=== PATIENT | male | born 1960 | race Caucasian/White ===

== ENCOUNTER 2018-12-17 06:46 | Inpatient (IN) ==
--- NOTE | 2018-11-24 08:05 | History & Physical Report ---
Date of Service November 24, 2018 Date of Surgery: 12-17-18 Assessment & Plan (1) Osteoarthritis of left knee: Risks and benefits of procedure discussed in detail today, patient would like to proceed with a left total knee replacement at [facility] as scheduled. will obtain medical clearance prior to surgery as well as obtain PATs at [facility]. Will place on ASA 81mg po bid x 1 month post op, f/u 2 weeks post op for routine post-operative care and x-ray, sooner if having any problems. will make arrangements for HHPT at the time of discharge. At this point in time, has failed conservative measures and would like to proceed with surgical intervention. (2) Osteoarthritis: History of Present Illness Chief Complaint: left knee pain Primary Care Provider: Glen Chandler Mr Erickson is a 58 year old male who complains of left knee pain, presents for pre-op evaluation prior to a left total knee replacement on 12-17-18 with removal of ACL screws. He presents with pain, crepitus and decreased rom on the left side. He states that the symptoms have been chronic non-traumatic. The symptoms occur constantly with intermittent worsening. Currently the patient states that the symptoms are moderate-severe. The pain is described as aching, discomforting and throbbing. The symptoms occur intermittently. He rates his current pain as 4/10 and worst is 7/10. The symptoms are aggravated by ascending stairs, daily activities, descending stairs, first steps while awake, kneeling, movement, repetitive activities, sleeping on the affected side, squatting and walking. Bill states that the symptoms are relieved by no specific activity. In addition to left knee pain the patient is also experiencing decreased mobility, crepitus, pain after activity, limping and joint pain. Prior NSAIDs include Aleve and Ibuprofen. He has been treated with a corticosteroid injection on the left side. Patient had visco injection 11/2017. Patient has had previous therapy. He underwent ACL reconstruction approximately 19 years ago. Allergies Allergy/AdvReac Type Severity Reaction Status Date / Time Penicillins Allergy Rash Verified 11/21/18 08:24 Home Medications Home Medications Medication Instructions Recorded Confirmed Type acetaminophen [Tylenol] 650 mg PO Q6H PRN 11/21/18 11/21/18 History aspirin 325 mg PO BID PRN 11/21/18 11/21/18 History lysine [L-Lysine] 500 mg PO DAILY 11/21/18 11/21/18 History Past Med/Surg History Surgical History History of arthroscopy LEFT KNEE ACL REPAIR, RIGHT KNEE SCOPE Family History Unknown Diabetes Social History Preferred Language: Luxembourgish Communication Ability: Effective Outside Cutter Required: No Beliefs That Will Affect Care: None Current Living Situation: Spouse Other Information That Helps Us Care for You: No Feels Safe at Home: Yes Safety Concerns: Feels Safe At This Time Smoking Status: Never smoker Hx Alcohol Use: No Hx Substance Use: No Review of Systems All systems reviewed & are unremarkable except as noted in HPI & below Constitutional: no fever, no chills and no sweats Respiratory: no cough and no dyspnea Cardiovascular: no chest pain, no dyspnea and no orthopnea Gastrointestinal: no abdominal pain, no nausea and no vomiting Musculoskeletal: as per Subjective / HPI Integumentary: no rash and no lesions Physical Exam Vital Signs (Past 24 Hours): Ht: 5ft 11in Wt: 104.3kg BP: 138/84 Pulse: 66 Constitutional: WD/WN, vitals as above no acute distress Respiratory: normal respiratory effort, lungs clear to auscultation no respiratory distress, no labored breathing and does not use accessory muscles Cardiovascular: RRR, no murmur, no edema Gastrointestinal (Abdomen): normal bowel sounds, soft, nontender, no hepatosplenomegaly Musculoskeletal: Left Knee Physical Exam Patient ambulates with a limp, no assistance devices, overall varus alignment.well healed surgical incisions. There is no erythema or warmth, no atrophy or ecchymosis noted, mild suprapatellar effusion, maximum tenderness over her medial joint line negative patellar apprehension , mild crepitation with motion, quna's Negative, posterior drawer negative. positive mcmurrays medially, negative anterior drawer, knee stable with valgus/varus stress. no extensor lag. pain with active range of motion, AROM 0/3/110, Passive ROM 0/3/115. No pain with active/passive ROM of ankle. Lower Extremity Strength n ormal. Lower Extremity Neuro-vascular is normal Results & Data Diagnostic Findings Left Knee X-ray from 11-18-18 showing advanced degenerative changes to the left knee, greatest medial compartments and patellofemoral joint. complete loss of medial compartment, there is osteophyte formation and subchondral sclerosis. no acute bony pathology noted. 2 metallic screws from prior ACL reconstruction. no loose bodies.
--- NOTE | 2018-11-24 11:58 | Anesthesiology Consultation ---
Date of Service November 24, 2018 Assessment & Plan (1) Encounter for pre-operative examination: - PCP: 12/08/18: "cleared for elft TKR" Chart Review Chart Review: Acceptable Risk for Surgery and Patient seen in Pre Admission Testing Teaching & Discussion Pre-Anesthesia Teaching/Discussion Notes: Instructed NPO after midnight before surgery,except medications with 15 cc of water. Medication instructions provided according to the PAT guidelines. History Surgery Operation Date: 12/17/18 11:50 Proposed Procedures p Left Total Knee Arthroplasty, - Uzair Kunz DO Height/Weight Height: 5 ft 11 in Weight: 106.7 kg Allergies Allergy/AdvReac Type Severity Reaction Status Date / Time Penicillins Allergy Rash Verified 11/21/18 08:24 Medications Home Medications Medication Instructions Recorded Confirmed Last Taken acetaminophen [Tylenol] 650 mg PO Q6H PRN 11/21/18 11/21/18 Unknown aspirin 325 mg PO BID PRN 11/21/18 11/21/18 Unknown lysine [L-Lysine] 500 mg PO DAILY 11/21/18 11/21/18 Unknown Past Medical History Medical History Obesity Osteoarthritis Past Family History Family History Unknown Diabetes Past Surgical History Surgical History History of arthroscopy LEFT KNEE ACL REPAIR, RIGHT KNEE SCOPE Past Anesthesia History No Hx of Anesthesia Complications and No Family Hx of Anesthesia Complications History of PONV No Motion Sickness Screening History of Motion Sickness: No Social History Smoking Status: Never smoker Do You Dip or Chew Tobacco: No Hx Alcohol Use: Yes alcohol intake frequency: holidays/special occasions only Alcohol Intake Frequency Comment: RARE Hx Substance Use: No substance use type: does not use Exercise / Class Metabolic Activity II 4-5 Yardwork/Stairs/Walk up hill Review of Systems Patient denies chest pain, shortness of breath, dyspnea on exertion, cough, wheezing, palpitations. Physical Exam Vital Signs VITALS BP 155/83 P 82 TEMP 98.7 SP02 96%RA RESP 16 Patient advised to followup with PCP regarding elevated BP. PHYSICAL Full neck and c-spine range of motion. Full TMJ range of motion. TMD 3 finger breaths Mallampati Score 2 Dentition: missing molars Lungs: clear throughout to auscultation Cardiac: regular rate and rhythm, no murmurs noted Spine: normal Carotid arteries: negative bruit Extremities: no edema Testing Electrocardiogram Date: 11/24/18 Findings: + NSR @ (79) Chest X-Ray Date: 11/24/18 Findings: + NAD Laboratory Results 11/24/18 12:32 11/24/18 12:32 Blood Type A Positive 11/24/18 12:32 Antibody Screen NEGATIVE 11/24/18 12:32 PT 10.3 Seconds (9.0-12.0) 11/24/18 12:32 INR 1.0 (0.9-1.1) 11/24/18 12:32 APTT 24.1 Seconds (21.0-31.0) 11/24/18 12:32 Hemoglobin A1c 6.0 % (4.5-5.6) H 11/24/18 12:32 Urine Color Yellow 11/24/18 12:17 Urine Appearance Clear (Clear) 11/24/18 12:17 Urine pH 7.0 (4.5-7.5) 11/24/18 12:17 Ur Specific [place] 1.015 (1.000-1.030) 11/24/18 12:17 Urine Protein Negative (Negative) 11/24/18 12:17 Urine Glucose (UA) Negative (Negative) 11/24/18 12:17 Urine Ketones Negative (Negative) 11/24/18 12:17 Urine Nitrite Negative (Negative) 11/24/18 12:17 Ur Leukocyte Esterase Negative (Negative) 11/24/18 12:17 11/24/18 12:17 Urine Culture - Final Urine,Clean Catch No growth - less than 1,000 colonies/mL.
--- NOTE | 2018-11-24 11:59 | PAT Medication Instructions ---
Medication Instructions Date of Service November 24, 2018 Home Medications acetaminophen [Tylenol] 650 mg PO Q6H PRN aspirin 325 mg PO BID PRN lysine [L-Lysine] 500 mg PO DAILY ASK your prescriber and surgeon aspirin 325 mg PO BID PRN STOP taking 2 weeks before surgery (or as soon as possible if surgery is within 2 weeks) lysine [L-Lysine] 500 mg PO DAILY Take morning of surgery With a small sip of water, OTHERWISE NOTHING TO EAT OR DRINK AFTER MIDNIGHT: acetaminophen [Tylenol] 650 mg PO Q6H PRN (okay to take up to 4 hours prior to surgery if needed) Take evening before surgery acetaminophen [Tylenol] 650 mg PO Q6H PRN (if needed) Other Notes If you have any questions please call us at [phone] or [phone] or [phone] or [phone]
--- NOTE | 2018-11-24 12:52 | XRay Report ---
XR chest Pre-admission PA/Lat CLINICAL HISTORY: pat preoperative COMPARISON STUDY: No previous studies for comparison. FINDINGS: The bones soft tissues and hemidiaphragms are normal. The cardiomediastinal silhouette is n ormal. The lungs are clear. The pulmonary vasculature is normal. IMPRESSION: Negative chest. The above report was generated using voice recognition software. It may contain grammatical, syntax or spelling errors. Electronically signed by: Chago Hankins M.D. 11/24/2018 12:51 PM
[2018-11-24 13:13] LABS: Basophils # (auto) 0.03 K/uL (0-0.2); Basophils % (auto) 0.4 %; Eosinophils # (auto) 0.09 K/uL (0-0.5); Eosinophils % (auto) 1.2 %; Hematocrit (blood only) 43.6 % (42-52); Hemoglobin 15.1 g/dL (14.0-18.0); Immature Granulocytes # (auto) 0.02 K/uL (0.00-0.02); Immature Granulocytes % (auto) 0.3 %; Lymphocytes # (auto) 1.42 K/uL (1.2-3.4); Lymphocytes % (auto) 19.3 %; Mean Corpuscular Hgb Conc 34.6 g/dL (32-36); Mean Corpuscular Volume 87.4 fL (80-100); Mean Platelet Volume 10.2 fL (7.4-10.4); Monocytes % (auto) 10.9 %; Neutrophils # (auto) 4.99 K/uL (1.4-6.5); Neutrophils % (auto) 67.9 %; Platelet Count 175 K/uL (130-400); RDW Coefficient of Variation 13.6 % (11.5-14.5); Red Blood Count 4.99 M/uL (4.7-6.1); White Blood Count 7.35 K/uL (4.8-10.8)
[2018-11-24 13:16] LABS: Appearance Urine Clear (Clear); Bilirubin Urine Negative (Negative); Blood Urine Negative (Negative); Color Urine Yellow; Glucose Urine UA Negative (Negative); Ketones Urine Negative (Negative); Leukocyte Esterase Urine Negative (Negative); Nitrite Urine Negative (Negative); Protein Urine Negative (Negative); Specific Gravity Urine 1.015 (1.000-1.030); Urobilinogen Urine Negative (Negative)
[2018-11-24 13:20] LABS: Albumin Level 3.7 gm/dl (3.4-5.0); BUN Creatinine Ratio 9.3 (10-20); Calcium 9.6 mg/dl (8.5-10.1); Creatinine Clr Calc Pharmacy 100.3 ml/min; Est GFR (African American) 95.3; Est GFR (Non-African American) 82.2; Potassium 4.4 mmol/L (3.5-5.1)
[2018-11-24 13:30] LABS: Partial Thromboplastin Ratio 0.9; Partial Thromboplastin Time 24.1 Seconds (21.0-31.0); Prothrombin Time 10.3 Seconds (9.0-12.0)
[2018-11-24 13:38] LABS: Estimated Average Glucose 126 mg/dl
[~2018-12-17 06:46] MED LIST: ACETAMINOPHEN 500 MG TAB PO SCH; CEFAZOLIN 2000MG 2,000 MG/15 ML SYR IV SCH; CeleBREX 200 MG CAP PO SCH; FAMOTIDINE 20 MG TAB PO SCH; GABAPENTIN 300 MG x 2 PO SCH; LR 500ML BOLUS, THEN 15ML/HR IV SCH; METOCLOPRAMIDE HCL 10 MG TABLET PO SCH; ROPIVACAINE 0.5% HCL/PF 150 MG, BUPIVACAINE 0.5% MPF 30 ML, EPINEPHrine 30MG/30ML (OR U... INFIL SCH; TRANEXAMIC ACID 1,000 MG **IV Intra-op IV SCH; TRANEXAMIC ACID 1,000 MG **IV Pre-op IV SCH; dexAMETHasone 4 MG TAB PO SCH
[2018-12-17] MEDS ORDERED: ROPIVACAINE 0.5% 5 MG/ML 30 ML VIAL ONE (07:05)
[2018-12-17] MEDS ORDERED: BUPIVACAINE 0.5 % 5 MG/1 ML PF 10ML VIAL ONE (07:05)
--- NOTE | 2018-12-17 07:06 | History & Physical Bridge Note ---
Date of Service December 17, 2018 History & Physical Bridge Note I have examined the patient, reviewed the History & Physical and in the interval since the performance of the History & Physical I have noted the following changes of clinical significance: no changes noted
[2018-12-17] MEDS ORDERED: MIDAZOLAM HCL 1 MG/ML 2ML VIAL ONE ×3 (07:58→10:11)
[2018-12-17] MEDS ORDERED: fentaNYL citrate 100 MCG/2 ML VIAL ONE (07:58)
[2018-12-17] MEDS ORDERED: ORTHO JOINT ANESTHETIC ONE (09:04)
[2018-12-17] MEDS ORDERED: POVIDONE-IODINE OP SOLN 30 ML BTL ONE (09:04)
[2018-12-17] MEDS ORDERED: BACITRACIN INJ 50,000 UNIT VIAL ONE (09:04)
[2018-12-17] MEDS ORDERED: KETOROLAC 30 MG/ML VIAL IV PRN (09:32)
[2018-12-17] MEDS ORDERED: PHENYLEPHRINE 100MCG/ML 5ML SYR IV PRN (09:32)
[2018-12-17] MEDS ORDERED: ATROPINE SULFATE 0.1 MG/ML 10ML SYR IV PRN (09:32)
[2018-12-17] MEDS ORDERED: ePHEDrine sulfate 50 MG/ML AMP IV PRN (09:32)
[2018-12-17] MEDS ORDERED: ONDANSETRON INJ 2 MG/ML 2 ML VIAL IV PRN ×2 (09:32→12:55)
[2018-12-17] MEDS ORDERED: HYDROmorphone INJ 1 MG/ML SYRINGE IV PRN (09:32)
[2018-12-17] MEDS ORDERED: PROPOFOL IV EMULSION 10 MG/ML 20 ML VIAL IV ONE (10:12)
--- NOTE | 2018-12-17 11:25 | Operative Report ---
Post Operative Report Pre & Post Diagnosis Operation Date: 12/17/18 09:10 Pre-Op Diagnosis: LEFT KNEE OSTEOARTHRITIS & KNEE PAIN Post-Op Diagnosis: LEFT KNEE OSTEOARTHRITIS & KNEE PAIN removal of tibial and femoral ACL interference screws Procedure Operation Date: 12/17/18 09:10 Actual Procedures p Left Total Knee Arthroplasty, Removal of 2 Anterior Cruciate Ligament Screws( Left) utilizing Nicholson & NephLily & Strum journey 2 patient matched total knee arthroplasty size 7 femur 6 tibia 9 poly-32 oval patella removal of femoral and tibial ACL interference screws- zUair Kunz DO Surgeon Uzair Kunz DO Supervisor Lathing Carrington MARINELLI Estimated Blood Loss 5 Findings Consistent with Post-Op Diagnosis Patient presents with severe end-stage DJD of the left knee with varus alignment varus knee subchondral cystic changes retained hardware tibia and femur from previous ACL reconstruction medial osteophyte subchondral bone sclerosis and subchondral cystic changes patient presents after failed attempts at conservative management for left total knee arthroplasty Specimens Bone cartilage tibial and femoral interference screws Drains Medium bore Hemovac Complications none Disposition Accompanied Patient To Recovery: No Disposition: Recovery Room Indications Patient presents with severe end-stage DJD left knee with varus alignment no response to conservative management previous years prior to undergoing ACL reconstruction presents with progressive DJD subchondral sclerosis above findings noted times surgery patient is failed attempted injections bracing anti-inflammatories relative rest activity modification presents for left total knee arthroplasty Description of Procedure After proper prepping and draping of the left lower extremity anterior midline incision was made over the region of the extensor extensor mechanism after meticulous hemostasis was obtained and maintained in subcutaneous tissues a medial parapatellar incision was made The patella was subluxed lateralward the medial lateral gutter were cleaned from any hypertrophic synovitis and scar tissue proximal tibial distal femoral interference screws removed at this time to remove them from the field so they were not the way of the final implants of the distal femoral block was placed and the distal femoral osteotomy cut was made subsequently the chamfers anterior and posterior osteotomy cuts were made utilizing the 4-in-1 block the tibia was subsequently subluxed anteriorward medial and ateral meniscal remnants were excised in their entirety remnants of the anterior and posterior cruciate ligaments were excised in their entirety excellent exposure of the proximal tibia was obtained the tibial osteotomy guide was placed on the proximal tibial osteotomy cut was made once again the knee was irrigated with copious amounts of sterile saline solution the patella was subsequently everted lateralward thickened scar tissue around the patella was removed the patella was subsequently cut utilizing a freehand technique and was drilled prepared for final preparation and placement of patella socially flexion-extension gaps were checked and the equal and symmetric trials were placed to the appropriate femoral and tibial trials with poly-spacer being placed for equal flexion and extension gaps and full range of motion including extension to 0 and flexion to 140 the trial components after having been taken to recovery range of motion was subsequently removed meticulous hemostasis was obtained and maintained subsequently a knee block injection of joint cocktail including ropivacaine 0.5% 150 mg. Bupivacaine 0.5% epinephrine 1-200,030 mL's toradol 30 mg dexamethasone 4 mg ketamine 10 mg clonidine 100 micrograms normal saline solution 30 mg was infiltrated into the soft tissues of the posterior knee medial lateral gutters and periosteal synovium special attention was paid to protect neurovascular structures at all times subsequently trial components having been removed the knee was irrigated with sterile saline solution. debris was removed the proximal tibia was subsequently prepared and was made ready for the placement of the tibial component tibial component was also cemented and tamped into position the femoral component was subsequently placed and cemented in the position the patellar component was subsequently cemented in position because hemostasis once again obtained and maintained wound having been thoroughly irrigated with debridement and debridement lavage was performed as well as a medial parapatellar incision closed with #1 Vicryl in interrupted fashion subcutaneous was closed with #2 Vicryl skin was closed with skin clips. PA-C was necessary for prepping and drapping as well as wound closure of deep fascia Sub cutaneous tissue and skin and was necessary for the case. A sterile compressive dressing was placed patient was taken to recovery in stable condition of report dictated by Ze I attest to the content of the Intraoperative Record and any orders documented therein. Any exceptions are noted below. I attest to the content of the Intraoperative Record and any orders documented therein. Any exceptions are noted below.
--- NOTE | 2018-12-17 12:30 | Anesthesiology Progress Note ---
Date of Service December 17, 2018 Anesthesia Post Procedure Vital Signs Vital Signs: Temp Pulse Pulse Pulse Resp BP BP 12/17/18 12:27 36.4 C L 12/17/18 12:25 69 18 12/17/18 12:21 70 17 139/79 12/17/18 12:20 67 14 12/17/18 12:16 71 20 125/78 12/17/18 12:15 68 14 12/17/18 12:11 73 17 123/73 12/17/18 12:10 70 21 12/17/18 12:06 75 20 127/75 12/17/18 12:05 76 24 12/17/18 12:03 36.3 C L 76 79 17 143/75 H 143/75 H 12/17/18 07:07 37.2 C 76 18 166/97 H Pulse Ox 12/17/18 12:27 97 12/17/18 12:25 95 12/17/18 12:21 95 12/17/18 12:20 95 12/17/18 12:16 95 12/17/18 12:15 95 12/17/18 12:11 95 12/17/18 12:10 95 12/17/18 12:06 97 12/17/18 12:05 97 12/17/18 12:03 97 12/17/18 07:07 96 Pain Intensity Left Knee: Pain Intensity: 0 Transfer of Care Handoff Completed per policy Notes Mental Status: alert / awake / arousable Patient Amnestic to Procedure: Yes Nausea / Vomiting: adequately controlled Pain: adequately controlled Airway Patency, RR, SpO2: stable & adequate BP & HR: stable & adequate Hydration State: stable & adequate Neuraxial Anesthesia: was administered and sensory block is resolving Anesthetic Complications: no major complications apparent
[2018-12-17] MEDS ORDERED: HYDROmorphone INJ 0.5 MG/0.5 ML SYR IV PRN (12:55)
[2018-12-17] MEDS ORDERED: NALOXONE HCL 0.4 MG/1 ML VIAL/CARP IV PRN (12:55)
[2018-12-17] MEDS ORDERED: BISACODYL 10 MG SUPP PR PRN (12:55)
[2018-12-17] MEDS ORDERED: MAGNESIUM HYDROXIDE SUSP 30 ML UDC PO PRN (12:55)
[2018-12-17] MEDS: SODIUM CHLORIDE 0.9% 1000ML 1,000 ML IV SCH (14:06)
[2018-12-17] MEDS: ACETAMINOPHEN 500 MG TAB PO SCH ×2 (14:07→21:14)
[2018-12-17] MEDS: KETOROLAC TROMETHAMINE 15 MG/ML VIAL IV SCH ×2 (14:07→21:14)
--- NOTE | 2018-12-17 14:18 | XRay Report ---
XR knee LT 2V routine CLINICAL HISTORY: Surgical Post Op COMPARISON: None. DISCUSSION: Anatomic alignment post total left knee arthroplasty. Good contact between prosthetic and underlying bone. Surgical drains are in position. Expected postoperative soft tissue change. IMPRESSION: Anatomic alignment post total left knee arthroplasty. The above report was generated using voice recognition software. It may contain grammatical, syntax or spelling errors. Electronically signed by: Chago Hankins M.D. 12/17/2018 2:17 PM
[2018-12-17] MEDS: FERROUS GLUCONATE 324 MG TAB PO SCH (18:55)
[2018-12-17] MEDS: CEFAZOLIN 2000MG 2,000 MG/15 ML SYR IV SCH (18:55)
[2018-12-17] MEDS ORDERED: SENNA 8.6 MG TAB PO SCH (21:00)
[2018-12-17] MEDS: ASPIRIN 81 MG ECTAB PO SCH (21:13)
[2018-12-17] MEDS: DOCUSATE SODIUM 100 MG CAP PO SCH (21:14)
[2018-12-18] MEDS: SODIUM CHLORIDE 0.9% 1000ML 1,000 ML IV SCH (00:21)
[2018-12-18] MEDS: KETOROLAC TROMETHAMINE 15 MG/ML VIAL IV SCH ×3 (01:55→13:39)
[2018-12-18] MEDS: CEFAZOLIN 2000MG 2,000 MG/15 ML SYR IV SCH (01:55)
[2018-12-18] MEDS: ACETAMINOPHEN 500 MG TAB PO SCH ×2 (05:20→13:38)
--- NOTE | 2018-12-18 08:00 | Orthopedic Progress Note ---
Date of Service December 18, 2018 Assessment & Plan (1) Status post total left knee replacement: POD #1 s/p Left TKA pt/ot dvt proph with OXANA/SCD/ASA plan for d/c home with HHPT when stable, likely after PT today, may be discharged with hemovac pending recheck. Subjective POD #1 s/p Left TKA denies CP/SOB denies fever/chills pain well controlled, 08/28 Review of Systems Constitutional: no fever, no chills and no sweats Physical Exam Physical Exam: Vital Signs Temp 36.4 C L 12/18/18 02:09 Pulse 71 12/18/18 02:09 Resp 16 12/18/18 02:09 BP 147/86 H 12/18/18 02:09 Pulse Ox 98 12/18/18 02:09 Intake & Output 12/17/18 12/18/18 12/18/18 18:59 06:59 18:59 Intake Total 2970 / 4268.333 1298.333 / 4268.33 3 Output Total 810 / 1235 425 / 1235 Balance 2160 / 3033.333 873.333 / 3033.333 Weight 103.7 kg Intake: IV 820 / 1743.333 923.333 / 1743.333 Lr 1,000 ml @ 15 mls/hr IV . 600 / 600 Q24H SHABANA Rx#:[id number] Nss 1000ML 1,0 00 ml @ 100 mls/ 923.333 / 923.333 hr IV .Q10H SC H Rx#:[id number] Cyklokapron 1, 000 mg In Sodium 220 / 220 Chloride 100 m l @ 660 mls/hr IV 0630 SHABANA Rx#:[id number] IV Perioperative 1700 / 1700 Oral 450 / 825 375 / 825 Output: Urine 800 / 950 150 / 950 Estimated Blood Loss 5 / 5 Drain Output 5 / 280 275 / 280 Left Knee Hemo vac 5 / 280 275 / 280 Other: # Unmeasured Voi ds 1 Constitutional: WD/WN, vitals as above no acute distress Musculoskeletal: left knee: NVDI, calf SNT, negative penelope sign. DP palpable, able to wiggle toes/ankle movement without difficulty. dressing clean dry and intact. Vital Signs Temp 36.4 C L 12/18/18 02:09 Pulse 71 12/18/18 02:09 Resp 16 12/18/18 02:09 BP 147/86 H 12/18/18 02:09 Pulse Ox 98 12/18/18 02:09 Intake & Output 12/17/18 12/18/18 12/18/18 18:59 06:59 18:59 Intake Total 2970 / 4268.333 1298.333 / 4268.33 3 Output Total 810 / 1235 425 / 1235 Balance 2160 / 3033.333 873.333 / 3033.333 Weight 103.7 kg Intake: IV 820 / 1743.333 923.333 / 1743.333 Lr 1,000 ml @ 15 mls/hr IV . 600 / 600 Q24H SHABANA Rx#:[id number] Nss 1000ML 1,0 00 ml @ 100 mls/ 923.333 / 923.333 hr IV .Q10H SC H Rx#:[id number] Cyklokapron 1, 000 mg In Sodium 220 / 220 Chloride 100 m l @ 660 mls/hr IV 0630 SHABANA Rx#:[id number] IV Perioperative 1700 / 1700 Oral 450 / 825 375 / 825 Output: Urine 800 / 950 150 / 950 Estimated Blood Loss 5 / 5 Drain Output 5 / 280 275 / 280 Left Knee Hemo vac 5 / 280 275 / 280 Other: # Unmeasured Voi ds 1 Results & Data Vital Signs (Past 12 Hours) Vital Signs Temp Pulse Resp BP Pulse Ox 12/18/18 02:09 36.4 C L 71 16 147/86 H 98 12/17/18 23:32 36.8 C 70 16 143/86 H 97 Laboratory Results labs pending Diagnostic Findings XR knee LT 2V routine CLINICAL HISTORY: Surgical Post Op COMPARISON: None. DISCUSSION: Anatomic alignment post total left knee arthroplasty. Good contact between prosthetic and underlying bone. Surgical drains are in position. Expected postoperative soft tissue change. IMPRESSION: Anatomic alignment post total left knee arthroplasty.
[2018-12-18 08:13] LABS: Hematocrit (blood only) 36.7 % (42-52); Hemoglobin 12.9 g/dL (14.0-18.0); Mean Corpuscular Hgb Conc 35.1 g/dL (32-36); Mean Corpuscular Volume 86.6 fL (80-100); Platelet Count 160 K/uL (130-400); RDW Coefficient of Variation 13.2 % (11.5-14.5); RDW Standard Deviation 42.1 fL (36.4-46.3); Red Blood Count 4.24 M/uL (4.7-6.1); White Blood Count 13.18 K/uL (4.8-10.8)
[2018-12-18] MEDS: DOCUSATE SODIUM 100 MG CAP PO SCH (08:40)
[2018-12-18] MEDS: ASPIRIN 81 MG ECTAB PO SCH (08:40)
[2018-12-18] MEDS: FERROUS GLUCONATE 324 MG TAB PO SCH (08:40)
[2018-12-18] MEDS: OXYCODONE HCL IR 5 MG TAB (IMMEDIATE RELEASE) PO PRN ×2 (08:47→12:49)
[2018-12-18 08:49] LABS: BUN Creatinine Ratio 15.5 (10-20); Calcium 9.4 mg/dl (8.5-10.1); Creatinine Clr Calc Pharmacy 99.9 ml/min; Est GFR (African American) 96.4; Est GFR (Non-African American) 83.2; Potassium 4.2 mmol/L (3.5-5.1)
[2018-12-18] MEDS ORDERED: MULTIVITAMIN TAB PO SCH (09:00)
--- NOTE | 2018-12-24 01:36 | Discharge Summary ---
DATE OF ADMISSION: 12/17/2018 DATE OF DISCHARGE: 12/18/2018 DISCHARGE DIAGNOSIS: Degenerative joint disease, left knee. CONSULTS: None. COMPLICATIONS: None. PROCEDURES: Left total knee arthroplasty performed by Dr. Kunz on 12/17/2018 with noted removal of 2 anterior cruciate ligament screws. BRIEF HISTORY: As dictated in history and physical. HOSPITAL SUMMARY: The patient was admitted on the above date and had the above surgery performed which he tolerated well. On the first postoperative day, patient was without complaints. Denied chest pain or shortness of breath. No fever, chills. Pain was controlled and was remaining stable. Vital signs were stable. He was afebrile and he was started on physical therapy protocol and continued on DVT prophylaxis and pain management. He progressed well and was remaining stable and was planning for home health services upon discharge. He was thusly discharged to home on 12/18/2018. For further review, please see chart. LABORATORY AND X-RAY DATA: As per chart. DISCHARGE INSTRUCTIONS: The patient was discharged to home in satisfactory condition on 12/18/2018. DIET: Regular. ACTIVITY: Weightbearing as tolerated, left lower extremity with walker. Follow TK instruction sheets and special care instructions as noted. Follow up with Dr. Kunz in 2 weeks. The patient to call for appointment if one has not been made for you. DISCHARGE MEDICATIONS: Acetaminophen 1000 mg p.o. q.8 hours, aspirin 81 mg p.o. b.i.d., clindamycin 300 mg p.o. t.i.d., docusate sodium 100 mg p.o. b.i.d., oxycodone 5 mg p.o. q.6 hours p.r.n., resume home meds as listed and stop taking previous Tylenol and aspirin dosages.
== END 2018-12-18 15:08 | disposition home health service (06) | DRG 470 ==
LOC: ASU 06:46 → 3E 12:12